=== PATIENT | male | born 1965 | race Caucasian/White ===

== ENCOUNTER 2021-02-15 16:45 | Emergency (ER) | payer OTHER, MEDICARE, SELFPAY ==
[2021-02-15 16:46] VITALS: BP 144/98; PULSE 86; RESP 15; TEMP 35.8; O2SAT 95; BMI 27.8
--- NOTE | 2021-02-15 16:56 | EDS_ITS ---
HPI History of Present Illness Chief Complaint: Laceration Detail of Chief Complaint: Laceration to right index finger Narrative Narrative: Patient presents to the emergency department with a laceration to the right index finger that occurred prior to arrival in the emergency department. Patient states that he was taking some knives out of a package patient is left- hand dominant. Patient is up-to-date on tetanus. [facility] Medical History (Updated 02/15/21 @ 17:[address] Yeison Mckeon, DO) Parkinson's disease Allergy/AdvReac Type Severity Reaction Status Date / Time niacin Allergy Anaphylaxis Verified 02/15/21 16:47 Social History Smoking Status: Never smoker ROS ROS ED Constitutional Constitutional ED: Reports systems reviewed and no addt'l complaints, except as documented; Denies body ache(s), change in weight or chills Eyes Eyes: Denies acute decrease in peripheral vision, change in vision, double vision or loss of vision ENT ENT ED: Reports none; Denies ear pain, lip swelling, loss taste/smell, neck pain, otalgia or sore throat Cardiovascular Cardiovascular: Reports none; Denies abdominal pain, chest pain with activity, leg edema, lightheadedness, palpitations, rapid heart rate or syncope Respiratory/Chest Respiratory/Chest: Reports none; Denies change in mental status, dry cough, dyspnea, hemoptysis, shortness of breath at rest or shortness of breath with exertion Gastrointestinal Gastrointestinal: Reports none; Denies abdominal pain, change in stool character, diarrhea, hematemesis, hematochezia, melena, rectal bleeding or vomiting Genitourinary Genitourinary ED: Reports none; Denies abdominal discomfort, anuria, dysuria, genital pain or polyuria Musculoskeletal Musculoskeletal: Reports none and other Details: Laceration to right index finger ; Denies arthralgias, back pain, difficulty walking, extremity pain, muscle weakness or myalgias Integumentary Reports none; Denies abscess or rash Neurologic Neurologic: Reports none; Denies abnormal gait, confusion, focal weakness, frequent falls, headache(s), loss of vision, numbness, paresthesias, radicular pain, vertigo or weakness Psychiatric Psychiatric: Reports systems reviewed and no addt'l complaints, except as documented and none; Denies behavioral changes, confusion, difficulty concentrating, hallucinations, suicidal ideation, tactile hallucinations or visual hallucinations Endocrine Endocrinology: Denies none, cold intolerance, excessive sweating, fatigue or heat intolerance Hematologic/Lymphatic Hematologic/Lymphatic: Reports none; Denies anemia, easy bleeding or easy bruising Allergic/Immunologic Allergic/Immunologic ED: Denies as per HPI, none, lip swelling, mouth swelling, throat swelling, tongue swelling or hives EXAM Physical Exam Const Vital Signs: 02/15/21 16:46 Temperature 96.4 F L Temperature Source Temporal Pulse Rate 86 Respiratory Rate 15 Blood Pressure 144/98 H Blood Pressure Mean 113 Pulse Ox 95 Oxygen Delivery Method Room Air Positive well nourished and well developed General Appearance ED: well developed and NAD HEENT Reports TM's clear and moist mucous membranes normocephalic and atraumatic; Negative for trauma or tenderness Tympanic Membrane ED: Yes TM's clear Eyes PERRL and EOMs intact bilaterally General Eye ED: Negative for pale conjunctiva or scleral icterus Neck no lymphadenopathy, supple and no JVD General: Negative for tenderness Chest Wall inspection of chest normal and palpation of chest normal Chest: Negative for tenderness Resp normal respiratory effort and clear to auscultation bilaterally Effort and Inspection: Negative for respiratory distress or pain with movement Auscultation: Negative for rhonchi, wheezes or diminished lung sounds Cardio regular rate, regular rhythm, S1 normal heart sound, S2 normal heart sound and no murmurs Peripheral Pulses: pulses 2+ throughout GI normal to inspection, nondistended, normoactive bowel sounds, soft to palpation, non-tender, non-distended and no masses Back/Spine no CVA tenderness and no thoracic nor lumbar tenderness Extremity normal to inspection Extremity Narrative: Patient has a 1 cm laceration is horizontal orientation over the pulp of the distal phalanx of the right index finger. Small amount of blood oozing from it. Patient has normal range of motion at the DIP and PIP joint. General Extremety ED: Negative for edema General Extremity: Negative for edema Neuro oriented x3, CN's II-XII intact bilaterally, no sensory deficits noted and gait normal Sensorium / Orientation: awake, alert, oriented to person, oriented to place and oriented to time Motor Exam: strength 5/5 throughout and strength abnormal Psych mental status grossly normal Skin no rashes or lesions noted and no wounds MDM MDM MDM Narrative Medical decision making narrative: Patient consented verbally for suture repair of his laceration. We discussed options of digital block versus local anesthetic versus no anesthetic and he would prefer no anesthetic. Patient adv ised to have his sutures removed in 10 days. Patient advised to return if increasing pain, redness, swelling, purulent drainage, or condition should worsen anyway. Procedures Lacerations Right index finger laceration 1 cm: Length: 0.39 in Depth: Sub Q Shape: Linear Prep: Sterile Conditions and Shure-Clens Irrigated (ml): 50 Number of Sutures/[place]: 2 Suture Information: Vicryl and 5-0 Comment: Patient did not want anesthetic. Wound was cleansed with Shur- Clens and irrigated with copious saline. Using 5-0 Vicryl a total of 2 single interrupted sutures placed with good wound edge approximation. Patient tolerated procedure well. Clean dressing was applied. Discharge Plan Triage Chief Complaint: Laceration ED Provider: Yeison Mckeon Dx/Rx/DC Orders Clinical Impression: Laceration of index finger of right hand without complication Instructions: ED Laceration, Hand: All Closures Activity Restrictions/Additional Instructions: [facility] days Disposition Disposition: Home, Self Care
== END 2021-02-15 17:57 | disposition home or self-care (01) ==
LOC: ED 17:51
PROVIDERS: Emergency Provider Emergency Medicine
DX: S61.210A Laceration without foreign body of right index finger without damage to nail, initial encounter (principal); W26.0XXA Contact with knife, initial encounter; Y93.9 Activity, unspecified; Y92.9 Unspecified place or not applicable; G20 Parkinson's disease
CPT/HCPCS: 12001; 99283

== ENCOUNTER 2021-03-23 11:05 | Emergency (ER) | payer OTHER, MEDICARE, SELFPAY ==
[2021-03-23 11:05] VITALS: BP 171/106; PULSE 89; RESP 18; TEMP 36.6; O2SAT 100; BMI 28.2
--- NOTE | 2021-03-23 11:23 | ED.VIS.BACK ---
HPI History of Present Illness Chief Complaint: Back Informant: patient Onset/Context/Timing Onset: Days (3) Timing: Continuous Quality: Sharp Location: Lumbar Worsened by: improves with Movement Relieved by: Nothing Associated Symptoms Associated Symptoms: Numbness, Radiation to Right Leg and Abdominal Pain; Negative for Urinary Retention, Urinary Incontinence, Constipation and Fecal Incontinence Narrative Narrative: Patient presents with back pain that has been getting worse over the past 3 days. Patient [facility] and went to stand from a seated position when he felt something pull in his low back. Patient states the pain does radiate down his right leg. Patient states he also has a history of neuropathy in his right leg. Patient states the pain is sharp and stabbing. Patient states the pain is been constant. Patient states pain is worse with movement. Patient denies any paresthesias or weakness. Patient denies any bowel or bladder changes. Patient denies any saddle anesthesia. [facility] Medical History (Updated 03/23/21 @ 13:[address] Rishi Russo, DO) Parkinson's disease Home Medications buspirone 20 mg PO DAILY 03/23/21 [History Last Taken Unknown] esomeprazole magnesium 40 mg PO BID 03/23/21 [History Last Taken Unknown] famotidine 20 mg PO DAILY 03/23/21 [History Last Taken Unknown] ferrous sulfate 325 mg PO DAILY 03/23/21 [History Last Taken Unknown] fremanezumab-vfrm [Ajovy Autoinjector] 225 mg SUBCUT QMONTH 03/23/21 [History Last Taken Unknown] levothyroxine 75 mcg PO DAILY 03/23/21 [History Last Taken Unknown] lisinopril 10 mg PO DAILY 03/23/21 [History Last Taken Unknown] melatonin 10 mg PO QHS 03/23/21 [History Last Taken Unknown] methocarbamol 500 mg PO BID 03/23/21 [History Last Taken Unknown] oxycodone-acetaminophen 1 tab PO Q6H PRN PRN 3 Days #12 tablet 03/23/21 [Rx Last Taken Unknown] propranolol 10 mg PO BID 03/23/21 [History Last Taken Unknown] ropinirole 0.5 mg PO TID 03/23/21 [History Last Taken Unknown] simvastatin 20 mg PO QHS 03/23/21 [History Last Taken Unknown] sucralfate 1 g PO TID 03/23/21 [History Last Taken Unknown] sumatriptan succinate 50 mg PO Q2H PRN 03/23/21 [History Last Taken Unknown] zolpidem [Ambien] 10 mg PO QHS PRN 03/23/21 [History Last Taken Unknown] Allergy/AdvReac Type Severity Reaction Status Date / Time niacin Allergy Anaphylaxis Verified 03/23/21 11:07 Surgical History (Updated 03/23/21 @ 11:[address] Rishi Russo DO) History of carpal tunnel surgery Hx of appendectomy Hx of cholecystectomy Hx of hemorrhoidectomy Social History Smoking Status: Never smoker ROS ROS ED Constitutional Constitutional ED: Denies chills or fever(s) Eyes Eyes: Denies blurry vision or change in vision ENT ENT ED: Denies rhinorrhea or sore throat Cardiovascular Cardiovascular: Denies chest pain or palpitations Respiratory/Chest Respiratory/Chest: Denies cough or dyspnea Gastrointestinal Gastrointestinal: Reports nausea and vomiting Genitourinary Genitourinary ED: Denies dysuria or hematuria Musculoskeletal Musculoskeletal: Reports back pain; Denies neck pain Integumentary Denies abscess or rash Neurologic Neurologic: Denies headache(s) or weakness Allergic/Immunologic Allergic/Immunologic ED: Denies mouth swelling or urticaria EXAM Physical Exam Const Vital Signs: 03/23/21 11:05 03/23/21 12:59 Temperature 97.9 F Temperature Source Temporal Pulse Rate 89 73 Respiratory Rate 18 16 Blood Pressure 171/106 H 153/91 H Blood Pressure Mean 127 111 Pulse Ox 100 97 Oxygen Delivery Method Room Air Room Air Positive well nourished and well developed General Appearance ED: well developed HEENT Reports moist mucous membranes Neck supple and no JVD Back/Spine Back/Spine Narrative: There is tenderness of the lower lumbar spine and paraspinal muscles. There is no bony crepitance or step-off. There is no deformity. Range of motion was limited in all motions of the lumbar spine secondary to pain. Extremity normal to inspection General Extremety ED: Negative for edema or tenderness General Extremity: Negative for edema Neuro oriented x3 and no sensory deficits noted Sensorium / Orientation: alert Motor Exam: strength 5/5 throughout Psych mental status grossly normal MDM MDM MDM Narrative Medical decision making narrative: X-rays of the lumbar spine were obtained. There are 2 views. On my interpretation, there are degenerative changes. There is no acute fracture or spondylolisthesis. Patient was given a dose of morphine here. Patient is feeling better on reevaluation. Patient was given a prescription for Percocet. Patient was instructed to follow-up with his primary care physician in 5 to 7 days. Patient understood and was agreeable with the plan. All questions were answered. Radiography Diagnostic Testing: Radiology Impression Lumbar Spine X-Ray 03/23/21 12:01 IMPRESSION: Degenerative changes of the spine, as detailed above. Mild loss of height of the superior endplate of the L1 vertebrae. Electronically Signed: Dante Berman MD at 12:16 EDT , Service support , Discharge Plan Triage Chief Complaint: Back ED Provider: Rishi Russo Dx/Rx/DC Orders Clinical Impression: Low back pain radiating to right lower extremity Instructions: ED Back Sprain/Strain Prescriptions: New oxycodone-acetaminophen [oxycodone-acetaminophen] 1 TABLET tablet 1 tab PO Q6H PRN PRN (Reason: Pain) 3 Days Qty: 12 RF: 0 No Action methocarbamol 500 mg Tablet 500 mg PO BID RF: 0 sucralfate 1 gram Tablet 1 g PO TID RF: 0 sumatriptan succinate 50 mg Tablet 50 mg PO Q2H PRN (Reason: Migraine Headache) RF: 0 levothyroxine 75 mcg Tablet 75 mcg PO DAILY RF: 0 propranolol 10 mg Tablet 10 mg PO BID RF: 0 famotidine 20 mg Tablet 20 mg PO DAILY RF: 0 simvastatin 20 mg Tablet 20 mg PO QHS RF: 0 ferrous sulfate 325 mg (65 mg iron) Tablet 325 mg PO DAILY RF: 0 esomeprazole magnesium 40 mg Capsule,Delayed Release(Dr/Ec) 40 mg PO BID RF: 0 ropinirole 0.5 mg Tablet 0.5 mg PO TID RF: 0 buspirone 10 mg Tablet 20 mg PO DAILY RF: 0 lisinopril 10 mg Tablet 10 mg PO DAILY RF: 0 zolpidem [Ambien] 10 mg Tablet 10 mg PO QHS PRN (Reason: Sleep) RF: 0 melatonin 10 mg Capsule 10 mg PO QHS RF: 0 Ajovy Autoinjector 225 mg/1.5 mL Auto-Injector 225 mg SUBCUT QMONTH RF: 0 [facility] - [facility]-5 Days Disposition Disposition: Home, Self Care Discharge Date/Time: 03/23/21 13:33
[2021-03-23] MEDS: Morphine 4 MG/ML Syringe IM (11:49)
--- NOTE | 2021-03-23 12:01 | RAD_ITS ---
STUDY: X-RAY - LUMBAR SPINE REASON FOR EXAM: Male, 55 years old. Injury/Pain TECHNIQUE: 2 view(s) of the lumbar spine were obtained. COMPARISON: None FINDINGS: There is an exaggerated lumbar lordosis. There is no substantial scoliosis. There is a normal alignment of the vertebrae. Normal vertebral bodies and endplates. There is multi-level degenerative disc disease with multi-level disc space narrowing. Facet joint osteoarthritis. Mild loss of height of the superior end plate of the L1 vertebrae. The soft tissue structures are unremarkable. RAD/Lumbar Spine 2 or 3 Views IMPRESSION: Degenerative changes of the spine, as detailed above. Mild loss of height of the superior endplate of the L1 vertebrae. Electronically Signed: Dante Berman MD at 12:16 EDT , Service support ,
[2021-03-23 12:59] VITALS: BP 153/91; PULSE 73; RESP 16; O2SAT 97
== END 2021-03-23 13:33 | disposition home or self-care (01) ==
PROVIDERS: Emergency Provider Emergency Medicine
DX: M54.5 Low back pain (principal); G62.9 Polyneuropathy, unspecified; G20 Parkinson's disease; Z79.899 Other long term (current) drug therapy
CPT/HCPCS: 72100; 96372; 99282

== ENCOUNTER 2024-02-08 20:15 | Emergency (ER) | payer OTHER, SELFPAY ==
[2024-02-08 20:16] VITALS: BP 143/99; PULSE 80; RESP 16; TEMP 36.8; O2SAT 98; BMI 32.5
--- NOTE | 2024-02-08 20:41 | EDS_ITS ---
HPI History of Present Illness HPI Narrative: Patient presents with a right lower leg pain that began after falling off of a ladder today. Patient states he fell approximately 5 feet off of a ladder. Patient states that his pain is mainly over the lateral aspect of the right knee, leg, ankle, and foot. Patient states he has a history of neuropathy and chronically has paresthesias. Patient denies any different paresthesias. Patient denies any head injury or loss of consciousness. Patient denies any other injuries. Patient states his pain is worse with any movement. Chief Complaint: Lower Extremity Injury Informant: patient Occured/Mechanism Mechanism/Context: Yes fall Onset/Context/Timing Onset: Today Context: Sudden Onset Timing: Continuous Quality of Pain: Sharp (At times) and Aching Location: Right knee, lower leg, ankle, and foot Worsened by: Movement Relieved by: Nothing Associated Symptoms Associated Symptoms: Positive for Parasthesia (Chronic); Negative for Weakness or Loss of Funtion PFSH PFS Medical History Hypertension Hyperlipemia History of trigger finger Generalized neuropathy Parkinson's disease Home Medications ?Medication ?Instructions ?Recorded ?Last Taken ?Type buspirone 10 mg tablet 20 mg PO DAILY 03/23/21 Unknown History esomeprazole magnesium 40 mg 40 mg PO BID 03/23/21 Unknown History capsule,delayed release famotidine 20 mg tablet 20 mg PO DAILY 03/23/21 Unknown History melatonin 10 mg capsule 10 mg PO QHS 03/23/21 Unknown History methocarbamol 500 mg tablet 500 mg PO BID PRN headache 03/23/21 Unknown History ropinirole 0.5 mg tablet 0.5 mg PO TID 03/23/21 Unknown History Allergy/AdvReac Type Severity Reaction Status Date / Time niacin Allergy Anaphylaxis Verified 02/08/24 20:18 Surgical History History of tonsillectomy Hx of hemorrhoidectomy History of carpal tunnel surgery Hx of cholecystectomy Hx of appendectomy Social History Smoking Status: Never smoker ROS ROS ED Constitutional Constitutional ED: Denies chills or fever(s) Eyes Eyes: Denies blurry vision or change in vision ENT ENT ED: Denies rhinorrhea or sore throat Cardiovascular Cardiovascular: Denies chest pain or palpitations Respiratory/Chest Respiratory/Chest: Denies cough or dyspnea Gastrointestinal Gastrointestinal: Denies nausea or vomiting Genitourinary Genitourinary ED: Denies dysuria or hematuria Musculoskeletal Musculoskeletal: Reports back pain and neck pain Integumentary Denies abscess or rash Neurologic Neurologic: Denies headache(s) or weakness Allergic/Immunologic Allergic/Immunologic ED: Denies mouth swelling or urticaria EXAM Physical Exam Const Vital Signs: 02/08/24 20:16 Temperature 98.3 F Temperature Source Temporal Pulse Rate 80 Respiratory Rate 16 Blood Pressure 143/99 H Blood Pressure Mean 113 Pulse Ox 98 Oxygen Delivery Method Room Air Positive well nourished and well developed General Appearance ED: well developed HEENT Reports moist mucous membranes normocephalic and atraumatic Neck full ROM and supple Extremity Extremity Narrative: There is tenderness over the lateral aspect of the right knee, lower leg, ankle, and over the fifth metatarsal. There is mild edema. There is no ecchymosis. There is no deformity noted. Range of motion was limited in all motions of the right knee and ankle secondary to pain. Pedal pulses are equal bilaterally. Sensation was intact to light touch in all digits. Capillary refill was less than 2 seconds in all digits. Neuro oriented x3, CN's II-XII intact bilaterally, moves all extremities and no sensory deficits noted Sensorium / Orientation: alert Motor Exam: strength 5/5 throughout Psych mental status grossly normal MDM MDM MDM Narrative Medical decision making narrative: Differential diagnosis includes fracture, sprain, and contusion. X-rays of the right knee, tibia-fibula, and ankle will be obtained to assess for fracture. Radiography Diagnostic Testing: Clinical Impression(s) from Imaging Studies Knee X-Ray 02/08/24 20:46 IMPRESSION: Negative right knee x-rays. Electronically Signed: Reinaldo Montemayor MD at 21:28 EDT Reading Location ID and State: [facility] / [place] , Service support , Tibia/Fibula X-Ray 02/08/24 20:46 IMPRESSION: Negative right tibia and fibula x-rays. Electronically Signed: Reinaldo Montemayor MD at 21:28 EDT , Ankle X-Ray 02/08/24 21:00 IMPRESSION: Negative right ankle x-rays. Electronically Signed: Reinaldo Montemayor MD at 21:28 EDT , X-rays of the right ankle were obtained. There are 3 views. On my independent interpretation, there is no acute fracture noted. There is no soft tissue swelling noted. Radiologist also interpreted the x-rays and agrees. X-rays of the right tibia and fibula were obtained. There are 2 views. On my independent interpretation, there is no acute fracture noted. There is no soft tissue swelling. Radiologist also interpreted the x-rays and agrees. X-rays of the right knee were obtained. There are 4 views. On my independent interpretation, there is no acute fracture. There is no soft tissue swelling. There is no joint effusion noted. Radiologist also interpreted the x-rays and agrees. Treatment and Re-Evaluation Narrative: Patient was given a dose of [place] here. Patient was advised of his findings. Patient was instructed to ice and elevate the right lower extremity. Patient was given a walking boot. Patient was instructed to take Tylenol or ibuprofen as needed for pain. Patient was instructed to follow-up with his primary care physician in 5 to 7 days. Patient understood and was agreeable with the plan. All questions were answered. Discharge Plan Triage Chief Complaint: Lower Extremity Injury ED Provider: Rishi Russo Dx/Rx/DC Orders Clinical Impression: Right ankle sprain, Contusion of right knee and lower leg, Fall Instructions: ED Contusion, Lower Extremity, ED Ankle Sprain (Adult) Prescriptions: No Action methocarbamol 500 mg Tablet 500 mg PO BID PRN (Reason: headache) famotidine 20 mg Tablet 20 mg PO DAILY esomeprazole magnesium 40 mg Capsule,Delayed Release(Dr/Ec) 40 mg PO BID ropinirole 0.5 mg Tablet 0.5 mg PO TID buspirone 10 mg Tablet 20 mg PO DAILY melatonin 10 mg Capsule 10 mg PO QHS Primary Care Provider: [facility] Referrals: [facility] [Primary Care Provider] - 5-7 Days Activity Restrictions/Additional Instructions: Your x-rays did not show any fractures or broken bones. Use ice to your right leg and ankle for 15 to 20 minutes at a time. Do this 4-5 times per day. You may take Tylenol or ibuprofen as needed for pain. Wear the walking boot at all times while awake. You may take it off for bedtime. Follow-up with your primary care physician in 5 to 7 days. Print Language: Filipino Disposition Disposition: Home, Self Care
--- NOTE | 2024-02-08 20:46 | RAD_ITS ---
EXAM: XR RIGHT TIBIA AND FIBULA, 2 VIEWS CLINICAL INDICATION: Injury/Pain TECHNIQUE: Frontal and lateral views of the right tibia and fibula. COMPARISON: No relevant prior studies available. FINDINGS: BONES/JOINTS: Unremarkable. No acute fracture. No subluxation. Normal alignment. Preservation of the joint space. No sclerotic or destructive changes observed. SOFT TISSUES: Unremarkable. No soft tissue swelling or gas. No radiopaque foreign body. RAD/Tibia & Fibula 2 Views IMPRESSION: Negative right tibia and fibula x-rays. Electronically Signed: Reinaldo Montemayor MD at 21:28 EDT ,
--- NOTE | 2024-02-08 20:46 | RAD_ITS ---
EXAM: XR RIGHT KNEE COMPLETE, 4 OR MORE VIEWS CLINICAL INDICATION: Injury/Pain TECHNIQUE: Four or more views of the right knee. COMPARISON: No relevant prior studies available. FINDINGS: BONES/JOINTS: Unremarkable. No acute fracture. No subluxation. Normal alignment. Preservation of the joint space. No sclerotic or destructive changes observed. SOFT TISSUES: Unremarkable. No soft tissue swelling or gas. No radiopaque foreign body. RAD/Knee 4 or More Views IMPRESSION: Negative right knee x-rays. Electronically Signed: Reinaldo Montemayor MD at 21:28 EDT ,
[2024-02-08] MEDS: HYDROcodone Bitartrate/Apap 5/325 Tablet PO (20:49)
--- NOTE | 2024-02-08 21:00 | RAD_ITS ---
EXAM: XR RIGHT ANKLE COMPLETE, 3 OR MORE VIEWS CLINICAL INDICATION: Injury/Pain TECHNIQUE: Frontal, lateral and oblique views of the right ankle. COMPARISON: No relevant prior studies available. FINDINGS: BONES/JOINTS: Unremarkable. No acute fracture. No subluxation. Normal alignment. Preservation of the joint space. No sclerotic or destructive changes observed. SOFT TISSUES: Unremarkable. No soft tissue swelling or gas. No radiopaque foreign body. RAD/Ankle min 3 Views IMPRESSION: Negative right ankle x-rays. Electronically Signed: Reinaldo Montemayor MD at 21:28 EDT ,
[2024-02-08 21:54] VITALS: BP 148/97; PULSE 69; RESP 16; TEMP 36.7; O2SAT 96
== END 2024-02-08 22:06 | disposition home or self-care (01) ==
PROVIDERS: Emergency Provider Emergency Medicine; Visit Provider Emergency Medicine
DX: S93.401A Sprain of unspecified ligament of right ankle, initial encounter (principal); G20.A1 Parkinson's disease without dyskinesia, without mention of fluctuations; S80.01XA Contusion of right knee, initial encounter; I10 Essential (primary) hypertension; E78.5 Hyperlipidemia, unspecified; W11.XXXA Fall on and from ladder, initial encounter; Z79.899 Other long term (current) drug therapy; Z90.49 Acquired absence of other specified parts of digestive tract; S80.11XA Contusion of right lower leg, initial encounter
CPT/HCPCS: 73564; 73590; 73610; 99283

== ENCOUNTER 2024-03-17 12:52 | Emergency (ER) | payer OTHER, SELFPAY ==
[2024-03-17 12:52] VITALS: BP 155/103; PULSE 93; RESP 19; TEMP 35.7; O2SAT 97; BMI 33.3
--- NOTE | 2024-03-17 14:18 | EDS_ITS ---
HPI History of Present Illness Chief Complaint: Laceration Narrative Narrative: 58-year-old male past medical history of Parkinson's disease, [id number], was using a chain saw today when he was cutting branches. He states that he sustained a laceration more towards the base of his second digit on his right hand towards the webspace between the first and second digit. His tetanus immunization is up-to-date within the last 3 years. He denies other injury. States he washed out the cut at home, but could not get it to stop bleeding. He does not take blood thinners. [facility] Medical History Hypertension Hyperlipemia History of trigger finger Generalized neuropathy Parkinson's disease Home Medications ?Medication ?Instructions ?Recorded ?Last Taken ?Type buspirone 10 mg tablet 20 mg PO DAILY 03/23/21 Unknown History esomeprazole magnesium 40 mg 40 mg PO BID 03/23/21 Unknown History capsule,delayed release famotidine 20 mg tablet 20 mg PO DAILY 03/23/21 Unknown History melatonin 10 mg capsule 10 mg PO QHS 03/23/21 Unknown History methocarbamol 500 mg tablet 500 mg PO BID PRN headache 03/23/21 Unknown History ropinirole 0.5 mg tablet 0.5 mg PO TID 03/23/21 Unknown History Allergy/AdvReac Type Severity Reaction Status Date / Time niacin Allergy Anaphylaxis Verified 02/08/24 20:18 Surgical History History of tonsillectomy Hx of hemorrhoidectomy History of carpal tunnel surgery Hx of cholecystectomy Hx of appendectomy Social History Smoking Status: Never smoker ROS ROS ED ROS Narrative Constitutional: No fever, no chills. HEENT: No sore throat. No neck pain. No loss of vision. No rhinorrhea. Cardiovascular: No chest pain. No palpitations. No pedal edema. Respiratory: No cough, no shortness of breath. Abdominal: No abdominal pain. No nausea. No vomiting. Genitourinary: No dysuria. No hematuria. Musculoskeletal: No myalgias. No arthralgias. Neurologic: No headaches. No dizziness. No lightheadedness. Skin: No rash. No change in color. Lacerations to right hand, mainly to webspace between first and second digit/base of second digit Psychiatric: No depression. No anxiety. EXAM Physical Exam Narrative Exam Narrative: Afebrile. Vital signs noted. GCS 15. ABCs intact. There is a 2 and half centimeter laceration without active bleeding in the webspace between the first and second digit, along the base of the second digit laterally. Good capillary refill. Full range of motion of thumb and second digit. Const Vital Signs: 03/17/24 12:52 Temperature 96.2 F L Temperature Source Temporal Pulse Rate 93 Respiratory Rate 19 H Blood Pressure 155/103 H Blood Pressure Mean 120 Pulse Ox 97 Oxygen Delivery Method Room Air MDM MDM MDM Narrative Medical decision making narrative: Concern would be for open fracture as the chainsaw did hit his hand. X-rays were obtained of the right hand and interpreted by myself independently. His tetanus immunization is up-to-date. His wounds were cleansed. On my interpretation of his right hand x-ray, there is no evidence of an acute process, no fracture, no noted foreign body. I reviewed the radiology report which confirms my independent interpretation. The superficial laceration on his distal right index finger towards the DIP joint was cleansed, but is superficial. He requested that Band-Aid be placed on that. The webspace laceration more towards the metatarsal head was closed with four 4.0 Ethilon simple interrupted sutures. See procedure note for detail. At this point in time, after dressing was placed, I feel he can be discharged to follow-up with his primary care provider at the [facility] for suture removal in 7 to 10 days. Return instructions to the emergency department were reviewed. Disposition is discharged home in stable condition. Radiography X-Ray: Read by ED Physician and No Fracture Procedures Lacerations Right webspace between first and second digit/right hand: Length: 0.79 in Depth: Skin Shape: Linear Prep: Sterile Conditions and Shure-Clens Laceration repair: Irrigated, Lidocaine, Local, Skin sutures and Wound explored (No evidence of foreign body.) Number of Sutures/Walton: 4 Suture Information: Ethilon and 4-0 Comment: Patient tolerated procedure well. Hemostasis achieved. Discharge Plan Triage Chief Complaint: Laceration ED Provider: Marcial Benedict Dx/Rx/DC Orders Clinical Impression: Laceration of hand, right, Laceration of index finger of right hand without complication Instructions: ED Laceration, Hand: All Closures Prescriptions: No Action methocarbamol 500 mg Tablet 500 mg PO BID PRN (Reason: headache) famotidine 20 mg Tablet 20 mg PO DAILY esomeprazole magnesium 40 mg Capsule,Delayed Release(Dr/Ec) 40 mg PO BID ropinirole 0.5 mg Tablet 0.5 mg PO TID buspirone 10 mg Tablet 20 mg PO DAILY melatonin 10 mg Capsule 10 mg PO QHS [facility] Provider: [facility] Referrals: [facility] [Primary Care Provider] - Activity Restrictions/Additional Instructions: Have the 4 sutures were removed from your right hand in 7 to 10 days. Return with fever, drainage of pus from wound, redness Print Language: Chinese Disposition Disposition: Home, Self Care Discharge Date/Time: 03/17/24 15:25
[2024-03-17] MEDS: Acetaminophen 500 MG Tablet 1000 MG PO (14:30)
[2024-03-17] MEDS: Lidocaine 1% (20 ml mdv) 20 ML Vial INFILT (14:30)
--- NOTE | 2024-03-17 14:38 | RAD_ITS ---
STUDY: X-RAY - RIGHT HAND REASON FOR EXAM: Male, 58 years old. Laceration. TECHNIQUE: 3 view(s) of the hand. COMPARISON: None. FINDINGS: Normal radiocarpal articulation. Normal distal radioulnar joint. Normal visualized carpal bones. Normal carpal articulations Normal carpometacarpal articulation of the thumb. Normal second through fifth carpometacarpal joints. Normal metacarpi. Normal metacarpophalangeal joint of the thumb. Normal interphalangeal joint of the thumb. Normal proximal and distal phalanges of the thumb. Normal metacarpophalangeal joints of the second through fifth fingers. Normal proximal and distal interphalangeal joints of the second through fifth fingers. Normal phalanges of the second through fifth fingers. The soft tissue structures are unremarkable. RAD/Hand Min 3 Views IMPRESSION: Normal x-ray examination of the hand. Electronically Signed: Dante Berman MD at 14:52 EDT ,
[2024-03-17 15:25] VITALS: BP 142/98; PULSE 82; RESP 16; TEMP 36.4; O2SAT 100
== END 2024-03-17 15:25 | disposition home or self-care (01) ==
PROVIDERS: Emergency Provider Emergency Medicine; Visit Provider Emergency Medicine
DX: S61.411A Laceration without foreign body of right hand, initial encounter (principal); G20.A1 Parkinson's disease without dyskinesia, without mention of fluctuations; S61.210A Laceration without foreign body of right index finger without damage to nail, initial encounter; W29.3XXA Contact with powered garden and outdoor hand tools and machinery, initial encounter; I10 Essential (primary) hypertension; E78.5 Hyperlipidemia, unspecified; Z79.899 Other long term (current) drug therapy
CPT/HCPCS: 12001; 73130; 99283

== ENCOUNTER 2025-03-26 01:07 | Emergency (ER) | payer OTHER, SELFPAY ==
[2025-03-26 01:08] VITALS: BP 170/103; PULSE 77; RESP 18; TEMP 36.6; O2SAT 95; BMI 34.7
--- NOTE | 2025-03-26 02:14 | EDS_ITS ---
HPI History of Present Illness Chief Complaint: Dizziness Informant: patient and spouse/S.O. Narrative Narrative: 59-year-old male presenting for evaluation of dizziness. He states has been going on intermittently for 1-2 weeks and he has been having pain in his left ear as well as a left-sided headache. The headaches have been more frequent over the last couple months he states he has been working with the [facility] for those. He states that the dizziness/vertigo is episodic, feels like the room is turning upside down and spinning at times, it seem to start when he rolled over in bed and felt like somebody was flipping the mattress on him even though he was remaining still. Ever since he has triggered the symptoms with turning his head or changing positions. Remaining still, they eventually go away. However there is still occurring. He said he went to urgent care 5 days ago, they told him his ear was a little red but not necessarily infected prescribed an antibiotic, he still having some pain off-and-on but not a lot. No hearing loss. No fevers or chills or otorrhea. He states that they also prescribed meclizine and is not seeming to help with the dizziness. He said that urgent care told him if you take this and the dizziness does not get better within an hour or 2, go to the ER immediately. He states in addition to all of this home health checked on him today routinely and his blood pressure is 103/60 he was not lightheaded. He checked his blood pressure tonight when he was feeling poorly and having vertigo and a headache and it was 160s over 100. He states the [facility] has been having him watch his blood pressure and he just received a blood pressure cuff, he is not on blood pressure medication but he was ages ago but he was taken off of it about 2 years ago because his pressures were good. [facility] Medical History Hypertension Hyperlipemia History of trigger finger Generalized neuropathy Parkinson's disease Home Medications ?Medication ?Instructions ?Recorded ?Last Taken ?Type buspirone 10 mg tablet 20 mg PO DAILY 03/23/21 Unkn own History esomeprazole magnesium 40 mg 40 mg PO BID 03/23/21 Unk nown History capsule,delayed release famotidine 20 mg tablet 20 mg PO DAILY 03/23/21 Unkn own History melatonin 10 mg capsule 10 mg PO QHS 03/23/21 Unknow n History methocarbamol 500 mg tablet 500 mg PO BID PRN headache 03/23/21 Unknown History ropinirole 0.5 mg tablet 0.5 mg PO TID 03/23/21 Unkno wn History diazepam 2 mg tablet (Valium) 2 mg PO TID PRN dizzines s or 03/26/25 Unknown Rx vertigo #12 tabs Allergy/AdvReac Type Severity Reaction Status Date / Time niacin Allergy Anaphylaxis Verified 03/26/25 01:08 Surgical History History of tonsillectomy Hx of hemorrhoidectomy History of carpal tunnel surgery Hx of cholecystectomy Hx of appendectomy Social History Smoking Status: Never smoker ROS ROS ED Constitutional Constitutional ED: Denies chills or fever(s) Eyes Eyes: Denies change in vision or diplopia ENT ENT ED: Reports ear pain left; Denies rhinorrhea or sore throat Cardiovascular Cardiovascular: Denies chest pain or palpitations Respiratory/Chest Respiratory/Chest: Denies cough or dyspnea Gastrointestinal Gastrointestinal: Denies abdominal pain, diarrhea, nausea or vomiting Genitourinary Genitourinary ED: Denies dysuria or hematuria Musculoskeletal Musculoskeletal: Denies back pain or neck pain Integumentary Denies abscess or rash Neurologic Neurologic: Reports disequilibrium, dizziness and headache(s); Denies paresthesias or weakness Psychiatric Psychiatric: Denies anxiety or suicidal thoughts EXAM Physical Exam Const Vital Signs: 03/26/25 01:08 Temperature 97.9 F Temperature Source Oral Pulse Rate 77 Respiratory Rate 18 Blood Pressure 170/103 H Blood Pressure Mean 125 Pulse Ox 95 Oxygen Delivery Method Room Air Positive well nourished and well developed General Appearance ED: well developed and NAD HEENT Reports TM's clear and moist mucous membranes normocephalic and atraumatic Tympanic Membrane ED: Yes TM's clear Eyes PERRL and EOMs intact bilaterally Eyes Narrative: No pathologic nystagmus no direction changing nystagmus, no vertical or rotatory nystagmus. Normal skew test. Neck full ROM and supple Resp normal respiratory effort and clear to auscultation bilaterally Cardio regular rate, regular rhythm and no murmurs GI non-tender and non-distended Auscultation: normoactive bowel sounds Palpation: soft Back/Spine no CVA tenderness General Back: other FROM Extremity normal to inspection General Extremety ED: Negative for edema, pulses abnormal or tenderness General Extremity: Negative for edema or pulses abnormal Neuro oriented x3, CN's II-XII intact bilaterally and no sensory deficits noted Neuro Narrative: Normal speech. Normal [id number] and [id number] bilaterally. Abnormal jolt test. Sensorium / Orientation: awake and alert Motor Exam: strength 5/5 throughout Psych mental status grossly normal Skin no rashes or lesions noted and no wounds MDM MDM MDM Narrative Medical decision making narrative: At the time of exam his blood pressure 156/100. His neurologic exam is normal, his jolt test is abnormal suggesting a peripheral etiology of his disequilibrium and vertigo, which correlates with his history of intermittent symptoms that are triggered by head or position movements/changes, and ear symptoms without acute hearing loss. Does not need to see ENT emergently, but I recommend routine follow-up ongoing to prescribe him Valium and give him a dose here along with a dose of Reglan for this headache that he states feels like a migraine to him. Advised to continue following his blood pressures and I advised him to check his cuff against the home health nurses as well to validate them both. History & Record Review Discussion w/independent historian: Patient and Significant other Additional record(s) reviewed:: Other ([facility] report - pregabalin only) Discharge Plan Triage Chief Complaint: Dizziness ED Provider: Brady Sal Dx/Rx/DC Orders Clinical Impression: Peripheral positional vertigo of left ear, Hypotensive episode Instructions: ED BPV Vertigo Prescriptions: New diazepam [Valium] 2 mg tablet 2 mg PO TID PRN (Reason: dizziness or vertigo) Qty: 12 0RF No Action methocarbamol 500 mg Tablet 500 mg PO BID PRN (Reason: headache) famotidine 20 mg Tablet 20 mg PO DAILY esomeprazole magnesium 40 mg Capsule,Delayed Release(Dr/Ec) 40 mg PO BID ropinirole 0.5 mg Tablet 0.5 mg PO TID buspirone 10 mg Tablet 20 mg PO DAILY melatonin 10 mg Capsule 10 mg PO QHS [facility] Provider: [facility] Referrals: Christoph Quintero MD [Med Staff - Active Staff] - (Call for appointment or with ENT at the [facility]) [facility] [Primary Care Provider] - Print Language: Malay Disposition Disposition: Home, Self Care
--- OUTSIDE RECORDS SUMMARY | 2025-03-26 02:21 | XMS RPT_ITS | CCD ---
Author Organization [facility] Inform ion Partnership [facility] Care Team Providers Care Patrol Inspector Name Role Phone John Juarez MD Primary Care Provider Pcp AIR TOOL OPERATOR, No Primary Care [facility] Unavailable Rishi Russo Attending [place] Primary Care Unavailable Marcial Benedict Attending Unavailable Allergies Allergy Classification Reported Allergen(s) Allergy Type Date of Onset Reaction(s) Facility (2 sources) Niacin Drug Allergy 11-14-2020 Anaphylaxis [facility] (1 source) Niacin Drug Allergy 02-08-2024 [facility] Repository Medications Current Medications Medication Drug Class(es) Dates Sig (Normalized) Sig (Original) amitriptyline hydrochloride 10 mg oral tablet (2 sources) Tricyclic Antidepressant Start: 05-25-2021 take 1 tablet by mouth once daily at bedtime amitriptyline (ELAVIL) 10 mg tablet Indications: Chronic insomnia Take 1 tablet by mouth daily at bedtime. 30 tablet 2 05/25/2021 Active busPIRone hydrochloride 10 mg oral tablet (2 sources) Start: 05-01-2021 take 1 tablet by mouth once daily at bedtime busPIRone (BUSPAR) 10 mg tablet Take 1 tablet by mouth daily at bedtime. 0 05/01/2021 Active famotidine 20 mg oral tablet (2 sources) Histamine-2 Receptor Antagonist Start: 11-14-2020 take 1 tablet by mouth twice daily famotidine (PEPCID) 20 mg tablet Take 1 tablet by mouth twice daily. 30 tablet 0 11/14/2020 Active 1.5 ml fremanezumab-vfrm 150 mg/ml auto-injector (2 sources) inject 225 mg by subcutaneous injection every month fremanezumab-vfrm (AJOVY AUTOINJECTOR) 225 mg/1.5 mL auto-injector Inject 225 mg subcutaneously once every month. Do not shake. 0 Active hydrOXYzine hydrochloride 10 mg oral tablet (2 sources) Antihistamine take 1 tablet by mouth every eight hours as needed hydrOXYzine HCl (ATARAX) 10 mg tablet Take 10 mg by mouth three times daily as needed. 0 Active levothyroxine (2 sources) l-Thyroxine take 1 tablet by mouth once daily levothyroxine sodium (LEVOTHYROXINE ORAL) Take 1 tablet by mouth once daily. 70 mcgs 0 Active lisinopril 20 mg oral tablet (2 sources) Angiotensin Converting Enzyme Inhibitor take 10 mg by mouth once daily lisinopril (PRINIVIL) 20 mg tablet Take 10 mg by mouth once daily. 0 Active melatonin 10 mg oral capsule (2 sources) melatonin 10 mg cap Take by mouth. 0 Active methocarbamol 500 mg oral tablet (2 sources) Muscle Relaxant take 1 tablet by mouth every twelve hours as needed methocarbamol (ROBAXIN) 500 mg tablet Take 500 mg by mouth twice daily as needed. As needed 0 Active multivit with minerals/lutein (MULTIVITAMIN 50 PLUS ORAL) (2 sources) multivit with minerals/lutein (MULTIVITAMIN 50 PLUS ORAL) Take by mouth. 0 Active omeprazole 40 mg delayed release oral capsule (2 sources) Proton Pump Inhibitor Start: 05-01-2021 take 1 capsule by mouth twice daily omeprazole (PRILOSEC) 40 mg capsule Take 1 capsule by mouth twice daily. 0 05/01/2021 Active pregabalin 75 mg oral capsule (2 sources) Start: 05-16-2021 take 2 capsules by mouth twice daily pregabalin (LYRICA) 75 mg capsule Take 2 capsules by mouth twice daily for 30 days. 60 capsule 0 05/16/2021 Active propranolol hydrochloride 10 mg oral tablet (2 sources) beta-Adrenergic Lisa take 1 tablet by mouth twice daily propranolol (INDERAL) 10 mg tablet Take 10 mg by mouth twice daily. 0 Active risperiDONE 0.5 mg oral tablet (2 sources) Atypical Antipsychotic Start: 05-01-2021 take 1 tablet by mouth once daily risperiDONE (RISPERDAL) 0.5 mg tablet Take 1 tablet by mouth once daily. 0 05/01/2021 Active rOPINIRole 0.5 mg oral tablet (2 sources) Nonergot Dopamine Agonist Start: 05-16-2021 take 1 tablet by mouth every twenty-four hours as needed rOPINIRole (REQUIP) 0.5 mg tablet Take 1 tablet by mouth at bedtime as needed. 0 05/16/2021 Active 24 hr rotigotine 0.0417 mg/hr transdermal system (2 sources) Start: 05-01-2021 apply 1 dose transdermal route once daily rotigotine (NEUPRO) 1 mg/24 hour patch Apply 1 Patch as directed once daily. 0 05/01/2021 Active sucralfate 1000 mg oral tablet (2 sources) Aluminum Complex sucralfate (CARAFATE) 1 gram tablet Take 1 g by mouth continuous. 0 Active SUMAtriptan 50 mg oral tablet (2 sources) Serotonin-1b and Serotonin-1d Receptor Agonist SUMAtriptan (IMITREX) 50 mg tablet Take 50 mg by mouth as needed for Migraine Headache (see administration instructions). 0 Active zolpidem tartrate 10 mg oral tablet (2 sources) gamma-Aminobutyric Acid-ergic Agonist Start: 05-07-2021 take 1 tablet by mouth every 30 days at bedtime as needed zolpidem (AMBIEN) 10 mg Indications: Primary insomnia Take 1 tablet by mouth at bedtime as needed for up to 30 days. 15 tablet 0 05/07/2021 Active Problems Active Problems Problem Classification Problem Date Documented Da te Episodic/Chronic Disorders of lipid metabolism (2 sources) Hyperlipidemia; Translations: [Other hyperlipidemia] 02-13-2021 Chronic Essential hypertension (2 sources) Essential hypertension; Translations: [Essential (primary) hypertension] 02-13-2021 Chronic Headache; including migraine (2 sources) Migraine without aura; Translations: [Migraine without aura, not intractable, without status migrainosus] 02-13-2021 Chronic Miscellaneous mental health disorders (2 sources) Primary insomnia; Translations: [Primary insomnia] Onset: 12-18-2020 12-18-2020 Chronic Mood disorders (2 sources) Depressive disorder; Translations: [Depression] 02-13-2021 Chronic Open wounds of extremities (1 source) Laceration without foreign body of right hand, initial encounter; Translations: [Laceration without foreign body of right hand, initial encounter] Onset: 04-02-2024 Episodic Other hereditary and degenerative nervous system conditions (2 sources) Restless legs; Translations: [Restless legs syndrome] 02-13-2021 Chronic Other nervous system disorders (2 sources) Neuropathy; Translations: [Hereditary and idiopathic neuropathy, unspecified] Onset: 12-18-2020 12-18-2020 Chronic Sprains and strains (1 source) Sprain of unspecified ligament of right ankle, initial encounter; Translations: [Sprain of unspecified ligament of right ankle, initial encounter] Onset: 04-26-2024 Episodic Thyroid disorders (2 sources) Hypothyroidism; Translations: [Other specified hypothyroidism] 02-13-2021 Chronic Unclassified (2 sources) Parkinson's disease; Translations: [Parkinson disease] 02-13-2021 Chronic Past or Other Problems Problem Classification Problem Date Documented Da te Episodic/Chronic Other aftercare (2 sources) Patient encounter status; Translations: [Encounter for therapeutic drug level monitoring] Onset: 12-18-2020 12-18-2020 Episodic Results Test Name Value Interpretation Reference Range Facility Emergency Department Summary on 03-17-2024 Emergency Department Summary [facility] Medical Records Department [address] [place] [address] Emergency Department Summary 03/17/24 MR#: [id number] Acct: [id number] Name: JOHN VILLEGAS Rep #: [id number] : 1965 58 From: Marcial Benedict MD PCP: [place] Hospital Status:[facility] ER Location: ED HPI History of Present Illness Chief Complaint: Laceration Narrative Narrative: 58-year-old male past medical history of Parkinson's disease, [id number], was using a chain saw today when he was cutting branches. He states that he sustained a laceration more towards the base of his second digit on his right hand towards the webspace between the first and second digit. His tetanus immunization is up-to-date within the last 3 years. He denies other injury. States he washed out the cut at home, but could not get it to stop bleeding. He does not take blood thinners. [facility] Medical History Hypertension Hyperlipemia History of trigger finger Generalized neuropathy Parkinson's disease Home Medications ???Medication ???Instructions ???Recorded ???Last Taken ???Type buspirone 10 mg tablet 20 mg PO DAILY 03/23/21 Unknown History esomeprazole magnesium 40 mg 40 mg PO BID 03/23/21 Unknown History capsule,delayed release famotidine 20 mg tablet 20 mg PO DAILY 03/23/21 Unknown History melatonin 10 mg capsule 10 mg PO QHS 03/23/21 Unknown History methocarbamol 500 mg tablet 500 mg PO BID PRN headache 03/23/21 Unknown History ropinirole 0.5 mg tablet 0.5 mg PO TID 03/23/21 Unknown History Allergy/AdvReac Type Severity Reaction Status Date / Time niacin Allergy Anaphylaxis Verified 02/08/24 20:18 Surgical History History of tonsillectomy Hx of hemorrhoidectomy History of carpal tunnel surgery Hx of cholecystectomy Hx of appendectomy Social History Smoking Status: Never smoker ROS ROS ED ROS Narrative Constitutional: No fever, no chills. HEENT: No sore throat. No neck pain. No loss of vision. No rhinorrhea. Cardiovascular: No chest pain. No palpitations. No pedal edema. Respiratory: No cough, no shortness of breath. Abdominal: No abdominal pain. No nausea. No vomiting. Genitourinary: No dysuria. No hematuria. Musculoskeletal: No myalgias. No arthralgias. Neurologic: No headaches. No dizziness. No lightheadedness. Skin: No rash. No change in color. Lacerations to right hand, mainly to webspace between first and second digit/base of second digit Psychiatric: No depression. No anxiety. EXAM Physical Exam Narrative Exam Narrative: Afebrile. Vital signs noted. GCS 15. ABCs intact. There is a 2 and half centimeter laceration without active bleeding in the webspace between the first and second digit, along the base of the second digit laterally. Good capillary refill. Full range of motion of thumb and second digit. Const Vital Signs: 03/17/24 12:52 Temperature 96.2 F L Temperature Source Temporal Pulse Rate 93 Respiratory Rate 19 H Blood Pressure 155/103 H Blood Pressure Mean 120 Pulse Ox 97 Oxygen Delivery Method Room Air MDM MDM MDM Narrative Medical decision making narrative: Concern would be for open fracture as the chainsaw did hit his hand. X-rays were obtained of the right hand and interpreted by myself independently. His tetanus immunization is up-to-date. His wounds were cleansed. On my interpretation of his right hand x-ray, there is no evidence of an acute process, no fracture, no noted foreign body. I reviewed the radiology report which confirms my independent interpretation. The superficial laceration on his distal right index finger towards the DIP joint was cleansed, but is superficial. He requested that Band-Aid be placed on that. The webspace laceration more towards the metatarsal head was closed with four 4.0 Ethilon simple interrupted sutures. See procedure note for detail. At this point in time, after dressing was placed, I feel he can be discharged to follow-up with his primary care provider at the [facility] for suture removal in 7 to 10 days. Return instructions to the emergency department were reviewed. Disposition is discharged home in stable condition. Radiography X-Ray: Read by ED Physician and No Fracture Procedures Lacerations Right webspace between first and second digit/right hand: Length: 0.79 in Depth: Skin Shape: Linear Prep: Sterile Conditions and Shure-Clens Laceration repair: Irrigated, Lidocaine, Local, Skin sutures and Wound explored (No evidence of foreign body.) Number of Sutures/Rebeca: 4 Suture Information: Ethilon and 4-0 Comment: Patient tolerated procedure well. Hemostasis achieved. Discharge Plan Triage Chief (more content not included)... Normal [facility] Hand Min 3 Viewson 4 Hand Min 3 Views [facility] Imaging Services [address] [place] [address] Hand Min 3 Views MR#: [id number] Acct: [id number] Name: JOHN VILLEGAS Rep #: [id number] : 1965 M 58 From: Dante miranda MD PCP: [place] Hospital Status: REG ER Study: Hand Min 3 Views Date of Exam: 03/17/24 Exam# [id number] Ordering Dr: Marcial Benedict MD [id number] STUDY: X-RAY - RIGHT HAND REASON FOR EXAM: Male, 58 years old. Laceration. TECHNIQUE: 3 view(s) of the hand. COMPARISON: None. FINDINGS: Normal radiocarpal articulation. Normal distal radioulnar joint. Normal visualized carpal bones. Normal carpal articulations Normal carpometacarpal articulation of the thumb. Normal second through fifth carpometacarpal joints. Normal metacarpi. Normal metacarpophalangeal joint of the thumb. Normal interphalangeal joint of the thumb. Normal proximal and distal phalanges of the thumb. Normal metacarpophalangeal joints of the second through fifth fingers. Normal proximal and distal interphalangeal joints of the second through fifth fingers. Normal phalanges of the second through fifth fingers. The soft tissue structures are unremarkable. RAD/Hand Min 3 Views IMPRESSION: Normal x-ray examination of the hand. Electronically Signed: Dante Berman MD at 14:52 EDT Reading Location ID and State: [address] [place] [address] , Service support , CC: Dr. Marcial Benedict MD; [facility] Medical Researcher: Signed Normal [facility] Ankle min 3 Viewson 02-08-20 Ankle min 3 Views [facility] Imaging Services [address] [place], [place] [address] Ankle min 3 Views MR#: [id number] Acct: [id number] Name: JOHN VILLEGAS Rep #: [id number] : 1965 M 58 From: Reinaldo Johnson PCP: [facility] Status: REG ER Study: Ankle min 3 Views Date of Exam: 02/08/24 Exam# [id number] Ordering Dr: Rishi Russo DO [id number] EXAM: XR RIGHT ANKLE COMPLETE, 3 OR MORE VIEWS CLINICAL INDICATION: Injury/Pain TECHNIQUE: Frontal, lateral and oblique views of the right ankle. COMPARISON: No relevant prior studies available. FINDINGS: BONES/JOINTS: Unremarkable. No acute fracture. No subluxation. Normal alignment. Preservation of the joint space. No sclerotic or destructive changes observed. SOFT TISSUES: Unremarkable. No soft tissue swelling or gas. No radiopaque foreign body. RAD/Ankle min 3 Views IMPRESSION: Negative right ankle x-rays. Electronically Signed: Reinaldo Montemayor MD at 21:28 EDT , CC: Dr. Rishi Russo DO; [facility] Medical Researcher: Signed Normal [facility] Emergency Department Summary on 02-08-2024 Emergency Department Summary [facility] Medical Records Department [address] [place] [address] Emergency Department Summary 02/08/24 MR#: [id number] Acct: [id number] Name: JOHN VILLEGAS Rep #: [id number] : 1965 58 From: Rishi Russo DO PCP: [facility] Status:DEP ER Location: ED HPI History of Present Illness HPI Narrative: Patient presents with a right lower leg pain that began after falling off of a ladder today. Patient states he fell approximately 5 feet off of a ladder. Patient states that his pain is mainly over the lateral aspect of the right knee, leg, ankle, and foot. Patient states he has a history of neuropathy and chronically has paresthesias. Patient denies any different paresthesias. Patient denies any head injury or loss of consciousness. Patient denies any other injuries. Patient states his pain is worse with any movement. Chief Complaint: Lower Extremity Injury Informant: patient Occured/Mechanism Mechanism/Context: Yes fall Onset/Context/Timing Onset: Today Context: Sudden Onset Timing: Continuous Quality of Pain: Sharp (At times) and Aching Location: Right knee, lower leg, ankle, and foot Worsened by: Movement Relieved by: Nothing Associated Symptoms Associated Symptoms: Positive for Parasthesia (Chronic); Negative for Weakness or Loss of Funtion [facility] Medical History Hypertension Hyperlipemia History of trigger finger Generalized neuropathy Parkinson's disease Home Medications ???Medication ???Instructions ???Recorded ???Last Taken ???Type buspirone 10 mg tablet 20 mg PO DAILY 03/23/21 Unknown History esomeprazole magnesium 40 mg 40 mg PO BID 03/23/21 Unknown History capsule,delayed release famotidine 20 mg tablet 20 mg PO DAILY 03/23/21 Unknown History melatonin 10 mg capsule 10 mg PO QHS 03/23/21 Unknown History methocarbamol 500 mg tablet 500 mg PO BID PRN headache 03/23/21 Unknown History ropinirole 0.5 mg tablet 0.5 mg PO TID 03/23/21 Unknown History Allergy/AdvReac Type Severity Reaction Status Date / Time niacin Allergy Anaphylaxis Verified 02/08/24 20:18 Surgical History History of tonsillectomy Hx of hemorrhoidectomy History of carpal tunnel surgery Hx of cholecystectomy Hx of appendectomy Social History Smoking Status: Never smoker ROS ROS ED Constitutional Constitutional ED: Denies chills or fever(s) Eyes Eyes: Denies blurry vision or change in vision ENT ENT ED: Denies rhinorrhea or sore throat Cardiovascular Cardiovascular: Denies chest pain or palpitations Respiratory/Chest Respiratory/Chest: Denies cough or dyspnea Gastrointestinal Gastrointestinal: Denies nausea or vomiting Genitourinary Genitourinary ED: Denies dysuria or hematuria Musculoskeletal Musculoskeletal: Reports back pain and neck pain Integumentary Denies abscess or rash Neurologic Neurologic: Denies headache(s) or weakness Allergic/Immunologic Allergic/Immunologic ED: Denies mouth swelling or urticaria EXAM Physical Exam Const Vital Signs: 02/08/24 20:16 Temperature 98.3 F Temperature Source Temporal Pulse Rate 80 Respiratory Rate 16 Blood Pressure 143/99 H Blood Pressure Mean 113 Pulse Ox 98 Oxygen Delivery Method Room Air Positive well nourished and well developed General Appearance ED: well developed HEENT Reports moist mucous membranes normocephalic and atraumatic Neck full ROM and supple Extremity Extremity Narrative: There is tenderness over the lateral aspect of the right knee, lower leg, ankle, and over the fifth metatarsal. There is mild edema. There is no ecchymosis. There is no deformity noted. Range of motion was limited in all motions of the right knee and ankle secondary to pain. Pedal pulses are equal bilaterally. Sensation was intact to light touch in all digits. Capillary refill was less than 2 seconds in all digits. Neuro oriented x3, CN's II-XII intact bilaterally, moves all extremities and no sensory deficits noted Sensorium / Orientation: alert Motor Exam: strength 5/5 throughout Psych mental status grossly normal MDM MDM MDM Narrative Medical decision making narrative: Differential diagnosis includes fracture, sprain, and contusion. X-rays of the right knee, tibia- fibula, and ankle will be obtained to assess for fracture. Radiography Diagnostic Testing: Clinical Impression(s) from Imaging Studies Knee X-Ray 02/08/24 20:46 IMPRESSION: Negative right knee x-rays. Electronically Signed: Reinaldo Montemayor MD at 21:28 EDT , Fax [phone] (more content not included)... Normal [facility] Knee 4 or More Viewson 02-07 Knee 4 or More Views [facility] Services [address] [place] [id number] Knee 4 or More Views MR#: [id number] Acct: [id number] Name: JOHN VILLEGAS Rep #: [id number] : 1965 M 58 From: Reinaldo Johnson PCP: [facility] Status: REG ER Study: Knee 4 or More Views Date of Exam: 02/08/24 Exam# [id number] Ordering Dr: Rishi Russo DO [id number] EXAM: XR RIGHT KNEE COMPLETE, 4 OR MORE VIEWS CLINICAL INDICATION: Injury/Pain TECHNIQUE: Four or more views of the right knee. COMPARISON: No relevant prior studies available. FINDINGS: BONES/JOINTS: Unremarkable. No acute fracture. No subluxation. Normal alignment. Preservation of the joint space. No sclerotic or destructive changes observed. SOFT TISSUES: Unremarkable. No soft tissue swelling or gas. No radiopaque foreign body. RAD/Knee 4 or More Views IMPRESSION: Negative right knee x-rays. Electronically Signed: Reinaldo Montemayor MD at 21:28 EDT , CC: Dr. Rishi Russo DO; [facility] Medical Researcher: Signed Normal [facility] Tibia Fibula 2 Viewson 02-07 Tibia Fibula 2 Views [facility] [address] [place], [place] [address] Tibia Fibula 2 Views MR#: [id number] Acct: [id number] Name: JOHN VILLEGAS Rep #: [id number] : 1965 M 58 From: Reinaldo Johnson PCP: [facility] Status: REG ER Study: Tibia Fibula 2 Views Date of Exam: 02/08/24 Exam# [id number] Ordering Dr: Rishi Russo DO [id number] EXAM: XR RIGHT TIBIA AND FIBULA, 2 VIEWS CLINICAL INDICATION: Injury/Pain TECHNIQUE: Frontal and lateral views of the right tibia and fibula. COMPARISON: No relevant prior studies available. FINDINGS: BONES/JOINTS: Unremarkable. No acute fracture. No subluxation. Normal alignment. Preservation of the joint space. No sclerotic or destructive changes observed. SOFT TISSUES: Unremarkable. No soft tissue swelling or gas. No radiopaque foreign body. RAD/Tibia Fibula 2 Views IMPRESSION: Negative right tibia and fibula x-rays. Electronically Signed: Reinaldo Montemayor MD at 21:28 EDT Reading Location ID and State: [facility] / [place] , Service support , CC: Dr. Rishi Russo DO; [facility] Medical Researcher: Signed Normal [facility] AP INTERPRETATION ONLYon CASE REPORT Normal [facility] Comment on above: Order Comment: Speci men Type: FORMALIN-FIXED PARAFFIN-EMBEDDED TISSUE SPECIMEN Ordering Facility: [facility] Address: ATTN: [place] [address] Result Comment: Surg ica Pathology Report Case: [id number] Authorizing Provider: Ashwini Rodriges MD Collected: 09/12/2023 12:00 AM Ordering Location: [facility] [place] Received: 09/15/2023 10:39 PM [facility] Pathologist: Edilberto Bray MD Specimen: COLON BIOPSY, [id number] Performed By: #### L [id number] #### [facility] CLIA [id number] [address] [place] [address] [place] FINAL DIAGNOSIS Normal [facility] Comment on above: Order Comment: Speci men Type: FORMALIN-FIXED PARAFFIN-EMBEDDED TISSUE SPECIMEN Ordering Facility: [facility] Address: ATTN: LABORATORY, [place] [address] Result Comment: Ramo haddad, random biopsy: - No significant pathologic change. - No evidence of lymphocytic or collagenous colitis. ISIDRO/geovanni 09/16/2023 Performed By: #### L [id number] #### [facility] CLIA [id number] [address] [place] [address] STATES OF [facility] FINAL PERFORMING LAB Normal [facility] Comment on above: Order Comment: Speci men Type: FORMALIN-FIXED PARAFFIN-EMBEDDED TISSUE SPECIMEN Ordering Facility: [facility] Address: ATTN: [place] [address] Result Comment: Diag nostic interpretation performed at [facility], [address] [place] [address] CLIA# [id number] Rapier Insertion Loom Fixer: Isai Mendoza M.D. Performed By: #### L [id number] #### [facility] CLIA [id number] [address] [place] [address] [place] GROSS DESCRIPTION A. COLON BIOPSY Normal [facility] Comment on above: Order Comment: Speci men Type: FORMALIN-FIXED PARAFFIN-EMBEDDED TISSUE SPECIMEN Ordering Facility: [facility] Address: ATTN: LABORATORY, [place] [address] Result Comment: Elvira s and technical component performed at [facility]. See scanned Grossing document for details. Performed By: #### L [id number] #### [facility] CLIA [id number] [address] [place] [address] [place] Encounters Encounter Date Encounter Type Care Provider Facility Start: 03-17-2024 End: 03-17-2024 Emergency department patient visit [facility] Facility:[facility] Start: 02-08-2024 End: 02-08-2024 Emergency department patient visit [facility] Facility:[facility] Start: 12-23-2023 ambulatory John Juarez MD Work Phone: [facility] Start: 12-17-2023 ambulatory John Juarez MD Work Phone: [facility] Comment on above: PHMA/Care Gap Outrea ch Plan of Treatment Date Care Activity Detail Author Start: 04-11-2024 Influenza vaccination Influenz a Vaccine (Season Ended) [facility] Start: 04-11-2023 Covid-19 Vaccine ( season) Covid-19 Vaccine ( season) [facility] [facility] Start: 05-16-2022 Annual PCP Team Sound Controller ebonie Disease Visit Annual PCP Team Chronic Disease Visit [facility] Start: 2020 Prostate specific an tigen measurement Prostate Cancer Screening Discussion [facility] Start: 2015 Shingrix Vaccine (1 of 2) Berger grix Vaccine (1 of 2) [facility] Start: 2010 Diabetes Screening Diabetes Screenin g [facility] Start: 2010 Screening for malign ant neoplasm of colon [facility] Start: 2000 Lipid panel Lipid Screening [facility] Start: 1984 Hepatitis B Vaccine (1 of 3 - 19+ 3-dose series) Hepatitis B Vaccine (1 of 3 - 19+ 3-dose series) [facility] Start: 1984 Urine microalbumin profile DTa P,Tdap,Td Vaccine (1 - Tdap) [facility] Start: 1983 BP Controlled (<130/80) BP Controlle d (<130/80) [facility] Start: 1983 Hepatitis C screening Hepatitis C Sc reening [facility] Start: 1983 HIV screening HIV Screening [facility] Payers Date Payer Category Payer Self-pay 2024 Unknown [id number] 2020 Medicare MEDICARE MEDICAR E A AND B [id number] 2020-Present [phone] [place] [address] Medicare [id number] 2017 Private Health Insurance [employer] A ETNA OPEN ACCESS A[employer] SELECT [id number] 2017-Present [address] [place] [address] EPO [id number] Unknown [id number] Unknown [id number] Social History Date Type Detail Facility Start: 11-14-2020 Tobacco smoking stat us NJIS Never smoked tobacco [facility] Start: 11-14-2020 Tobacco use and exposure Smoke less tobacco non-user [facility] Start: 05-16-2021 Alcohol intake Ex-drinker (finding) [facility] Start: 11-14-2020 End: 05-16-2021 History of Social function [facility] Start: 11-14-2020 End: 05-16-2021 Tobacco use panel [facility] National Score (1-10 0), lower number is lower risk Not on file [facility] Start: 1965 Sex Assigned At Not on file [facility] Progress note 12-23-2023 Note Date & Type Note Facility 12-23-2023 Note HNO ID: [id number] Author: GERI SEQUEIRA LPN Service: ? Author Type: LICENSED NURSE Type: Progress Notes Filed: 12/23/2023 12:04 Note Text: Spoke with pt and he reports he has a [facility] [place] [facility] Geri Sequeira LPN [facility] Clinical Note 12-23-2023 Note Date & Type Note Facility 12-23-2023 Note Patient Outreach (FA MPWS) NELLY,JOHN LUZ ([id number]) 1965 M Date Time Provider Department 12/23/23 JOHN JUAREZ During your visit today, we recorded the following information about you: Geri Sequeira LPN 12/23/2023 12:04 PM Signed Spoke with pt and he reports he has a pcp at [facility] in [place] and [facility] is [facility] the [facility]. Geri Sequeira LPN Allergies As of Date: 12/23/2023 Noted Allergy Reaction NIACIN 11/14/2020 10 - Anaphylaxis Date Reviewed: 05/16/2021 Reviewed by: Jaden Matthews (Wilda) - Fully Assessed Prescriptions as of 12/23/2023 - amitriptyline (ELAVIL) 10 mg tablet Take 1 tablet by mouth daily at bedtime. - rOPINIRole (REQUIP) 0.5 mg tablet Take 1 tablet by mouth at bedtime as needed. - pregabalin (LYRICA) 75 mg capsule Take 2 capsules by mouth twice daily for 30 days. - zolpidem (AMBIEN) 10 mg Take 1 tablet by mouth at bedtime as needed for up to 30 days. - omeprazole (PRILOSEC) 40 mg capsule Take 1 capsule by mouth twice daily. - risperiDONE (RISPERDAL) 0.5 mg tablet Take 1 tablet by mouth once daily. - rotigotine (NEUPRO) 1 mg/24 hour patch Apply 1 Patch as directed once daily. - busPIRone (BUSPAR) 10 mg tablet Take 1 tablet by mouth daily at bedtime. - multivit with minerals/lutein (MULTIVITAMIN 50 PLUS ORAL) Take by mouth. - levothyroxine sodium (LEVOTHYROXINE ORAL) Take 1 tablet by mouth once daily. 70 mcgs - propranolol (INDERAL) 10 mg tablet Take 10 mg by mouth twice daily. - lisinopril (PRINIVIL) 20 mg tablet Take 10 mg by mouth once daily. - melatonin 10 mg cap Take by mouth. - SUMAtriptan (IMITREX) 50 mg tablet Take 50 mg by mouth as needed for Migraine Headache (see administration instructions). - methocarbamol (ROBAXIN) 500 mg tablet Take 500 mg by mouth twice daily as needed. As needed - hydrOXYzine HCl (ATARAX) 10 mg tablet Take 10 mg by mouth three times daily as needed. - sucralfate (CARAFATE) 1 gram tablet Take 1 g by mouth continuous. - fremanezumab-vfrm (AJOVY AUTOINJECTOR) 225 mg/1.5 mL auto-injector Inject 225 mg subcutaneously once every month. Do not shake. - famotidine (PEPCID) 20 mg tablet Take 1 tablet by mouth twice daily. Problem List As Of Date 12/23/2023 Noted Resolved Primary insomnia [F51.01] 12/18/2020 Idiopathic neuropathy [G60.9] 12/18/2020 Medication monitoring encounter [Z51.81] 12/18/2020 Parkinson disease (HCC) [G20.A1] Other specified hypothyroidism [E03.8] Depression [F32.A] RLS (restless legs syndrome) [G25.81] Other hyperlipidemia [E78.49] Migraine without aura [G43.009] Essential hypertension [I10] Encounter Status:Closed by GERI SEQUEIRA on 12/23/23 [facility] History of Present illness Narrative 12-23-2023 Geri Sequeira LPN - 12/23/2023 12:00 PM EDT Note Date & Type Note Facility 12-23-2023 History of Presen t illness Narrative Spoke with pt and he reports he has a [facility] [place] [facility] Geri Sequeira LPN documented in this encounter [facility] Progress note 12-17-2023 Note Date & Type Note Facility 12-17-2023 Note HNO ID: [id number] Author: JAZMYNE PELAYO LPN Service: ? Author Type: LICENSED NURSE Type: Progress Notes Filed: 12/17/2023 13:30 Note Text: POPULATION HEALTH NAVIGATION OUTREACH Action/FYI Care gap outreach Reason for Outreach Care Gap/HCC or Scheduling Wellness Visits Care Gaps due: Physical Annual Wellness Visit Controlling Blood Pressure Patient Contacted: Unable or unnecessary to reach patient: Left message Navigation Signature: Jazmyne Pelayo LPN December 17, 2023 1:29 PM [facility] Clinical Note 12-17-2023 Note Date & Type Note Facility 12-17-2023 Note Patient Outreach (FA MPWS) JOHN VILLEGAS ([id number]) 1965 M Date Time Provider Department 12/17/23 JOHN JUAREZWS During your visit today, we recorded the following information about you: Jazmyne Pelayo LPN 12/17/2023 1:30 PM Signed POPULATION HEALTH NAVIGATION OUTREACH Action/FYI Care gap outreach Reason for Outreach Care Gap/HCC or Scheduling Wellness Visits Care Gaps due: Physical Annual Wellness Visit Controlling Blood Pressure Patient Contacted: Unable or unnecessary to reach patient: Left message Navigation Signature: Jazmyne Pelayo LPN December 17, 2023 1:29 PM Allergies As of Date: 12/17/2023 Noted Allergy Reaction NIACIN 11/14/2020 10 - Anaphylaxis Date Reviewed: 05/16/2021 Reviewed by: Jaden Matthews (Wilda) - Fully Assessed Reason for Visit: PHMA/Care Gap Outreach [[id number]] Prescriptions as of 12/17/2023 - amitriptyline (ELAVIL) 10 mg tablet Take 1 tablet by mouth daily at bedtime. - rOPINIRole (REQUIP) 0.5 mg tablet Take 1 tablet by mouth at bedtime as needed. - pregabalin (LYRICA) 75 mg capsule Take 2 capsules by mouth twice daily for 30 days. - zolpidem (AMBIEN) 10 mg Take 1 tablet by mouth at bedtime as needed for up to 30 days. - omeprazole (PRILOSEC) 40 mg capsule Take 1 capsule by mouth twice daily. - risperiDONE (RISPERDAL) 0.5 mg tablet Take 1 tablet by mouth once daily. - rotigotine (NEUPRO) 1 mg/24 hour patch Apply 1 Patch as directed once daily. - busPIRone (BUSPAR) 10 mg tablet Take 1 tablet by mouth daily at bedtime. - multivit with minerals/lutein (MULTIVITAMIN 50 PLUS ORAL) Take by mouth. - levothyroxine sodium (LEVOTHYROXINE ORAL) Take 1 tablet by mouth once daily. 70 mcgs - propranolol (INDERAL) 10 mg tablet Take 10 mg by mouth twice daily. - lisinopril (PRINIVIL) 20 mg tablet Take 10 mg by mouth once daily. - melatonin 10 mg cap Take by mouth. - SUMAtriptan (IMITREX) 50 mg tablet Take 50 mg by mouth as needed for Migraine Headache (see administration instructions). - methocarbamol (ROBAXIN) 500 mg tablet Take 500 mg by mouth twice daily as needed. As needed - hydrOXYzine HCl (ATARAX) 10 mg tablet Take 10 mg by mouth three times daily as needed. - sucralfate (CARAFATE) 1 gram tablet Take 1 g by mouth continuous. - fremanezumab-vfrm (AJOVY AUTOINJECTOR) 225 mg/1.5 mL auto-injector Inject 225 mg subcutaneously once every month. Do not shake. - famotidine (PEPCID) 20 mg tablet Take 1 tablet by mouth twice daily. Problem List As Of Date 12/17/2023 Noted Resolved Primary insomnia [F51.01] 12/18/2020 Idiopathic neuropathy [G60.9] 12/18/2020 Medication monitoring encounter [Z51.81] 12/18/2020 Parkinson disease (HCC) [G20.A1] Other specified hypothyroidism [E03.8] Depression [F32.A] RLS (restless legs syndrome) [G25.81] Other hyperlipidemia [E78.49] Migraine without aura [G43.009] Essential hypertension [I10] Encounter Status:Closed by JAZMYNE PELAYO on 12/17/23 [facility] History of Present illness Narrative 12-17-2023 Jazmyne Pelayo LPN - 12/17/2023 1:29 PM EDT Note Date & Type Note Facility 12-17-2023 History of Presen t illness Narrative POPULATION HEALTH NAVIGATION OUTREACH Action/FYI Care gap outreach Reason for Outreach Care Gap/HCC or Scheduling Wellness Visits Care Gaps due: Physical Annual Wellness Visit Controlling Blood Pressure Patient Contacted: Unable or unnecessary to reach patient: Left message Navigation Signature: Jazmyne Pelayo LPN December 17, 2023 1:29 PM documented in this encounter [facility] Summary Purpose Family History No Family History Records FoundNo Family History Records Found Advance Directives No Advanced Directives Records FoundNo Advanced Directives Records Found Additional Source Comments Source Comments (unrecognize d section and content) In the event this informatio n is protected by the Federal Confidentiality of Alcohol and Drug Abuse Patient Records regulations: The Federal rules restrict any use of the information to criminally investigate or prosecute any alcohol or drug abuse patient.[facility] [place] [place] event this information is protected by the Federal Confidentiality of Alcohol and Drug Abuse Patient Records regulations: The Federal rules restrict any use of the information to criminally investigate or prosecute any alcohol or drug abuse patient.[facility] Reason for Visit (unrecogniz ed section and content) Reason Onset Date Comments PHMA/Care Gap Outreach 12/17/2023 Care Teams (unrecognized sec tion and content) Patrol Inspector Relationship Specialty Start Date End Date Bursley, Christopher B, MD [address] [place] [address] PCP - General Family Medicine 12/18/20 Patrol Inspector Relationship Specialty Start Date End Date Gina Orozco APRN PCP - General Adult Health 12/23/23 (unrecognized sect ion and content) No Status Records FoundNo Status Records Found INFORMATION SOURCE (unrecogn ized section and content) DATE CREATED AUTHOR 12/25/2023 [facility] DATE CREATED AUTHOR AUTHOR'S ORGANIZ ATION 04/27/2024 [facility] FOR RECORDS PERTAINING TO PATIENTS WHO ARE OR HAVE BEEN ENROLLED IN A CHEMICAL DEPENDENCY/SUBSTANCEABUSE PROGRAM, SOME INFORMATION MAY BE OMITTED. This clinical summary was aggregated from multiple sources. Caution should be exercised in using it in the provision of clinical care. This summary normalizes information from multiple sources, and as a consequence, information in this document may materially change the coding, format and clinical context of patient data. In addition, data may be omitted in some cases. CLINICAL DECISIONS SHOULD BE BASED ON THE PRIMARY CLINICAL RECORDS. [facility]. provides no warranty or guarantee of the accuracy or completeness of information in this document.
[2025-03-26 02:23] VITALS: BP 167/110; PULSE 73; RESP 18; TEMP 36.6; O2SAT 94
== END 2025-03-26 02:33 | disposition home or self-care (01) ==
PROVIDERS: Emergency Provider Emergency Medicine; Visit Provider Emergency Medicine
DX: H81.392 Other peripheral vertigo, left ear (principal); I95.9 Hypotension, unspecified; I10 Essential (primary) hypertension; R51.9 Headache, unspecified; E78.5 Hyperlipidemia, unspecified; Z90.49 Acquired absence of other specified parts of digestive tract; Z79.899 Other long term (current) drug therapy
CPT/HCPCS: 99283